=== PATIENT | male | born 1965 | race Two or more races ===

== ENCOUNTER 2020-09-10 23:48 | Emergency (ER) | payer OTHER ==
[~2020-09-10] VITALS: Ht 180.3 cm; Wt 113.4 kg
[2020-09-11] MEDS ORDERED: HORIZANT600 MG (00:24)
[2020-09-11] MEDS ORDERED: FORTAMET500 MG (00:24)
[2020-09-11] MEDS ORDERED: ZESTRIL5 MG (00:24)
[2020-09-11] MEDS ORDERED: SIMVASTATIN5 MG (00:24)
[2020-09-11] MEDS ORDERED: NORFLEX100MG PO (02:29)
[2020-09-11] MEDS ORDERED: DICLOFENAC SODI75 MG PO (02:29)
== END 2020-09-11 02:39 | disposition home or self-care (01) ==
LOC: ER 23:48
DX: S30.0XXA Contusion of lower back and pelvis, initial encounter (principal); W18.39XA Other fall on same level, initial encounter; Y93.89 Activity, other specified; Y92.238 Other place in hospital as the place of occurrence of the external cause; Y99.8 Other external cause status